=== PATIENT | male | born 1950 | race Caucasian/White ===

== ENCOUNTER 2019-02-20 06:13 | Day surgery (SDC) | payer MEDICARE, MEDICAID ==
[~2019-02-20] VITALS: Ht 160 cm; Wt 73.0 kg
[~2019-02-20 06:13] MED LIST: LACTATED RINGERS 1,000 ML IV SCH
[2019-02-20] MEDS ORDERED: BACITRACIN 15GM TUBE TOP ONE (07:07)
[2019-02-20] MEDS ORDERED: BUPIVACAINE/EPINEPH/PF 0.25%/0.0005 10ML ONE ×2 (07:07→08:51)
[2019-02-20] MEDS ORDERED: HEPARIN SODIUM 1,000 UNIT/1ML VIAL IV ONE (07:07)
[2019-02-20] MEDS ORDERED: BACITRACIN 50,000 UNITS/VIAL ONE (07:08)
[2019-02-20] MEDS ORDERED: MIDAZOLAM HCL 2 MG/2 ML VIAL ONE (07:56)
[2019-02-20] MEDS ORDERED: GLYCOPYRROLATE 0.2 MG/ML 2ML VIAL ONE (07:56)
[2019-02-20] MEDS ORDERED: PROPOFOL 200MG/20ML VIAL IV ONE (07:56)
[2019-02-20] MEDS ORDERED: FENTANYL CITRATE/PF 50MCG/ML 2ML VIAL ONE (07:56)
[2019-02-20] MEDS ORDERED: SUCCINYLCHOLINE CHLORIDE 200MG/10ML IV ONE (07:57)
[2019-02-20] MEDS ORDERED: METOCLOPRAMIDE HCL 10MG/2ML VIAL ONE (07:57)
[2019-02-20] MEDS ORDERED: LIDOCAINE HCL/PF 1% 10 MG/ML 5ML VIAL ONE (07:57)
[2019-02-20] MEDS ORDERED: ONDANSETRON HCL 4MG/2ML INJ ONE (07:57)
[2019-02-20] MEDS ORDERED: DEXAMETHASONE 4MG/ML 1ML VIAL ONE (08:10)
[2019-02-20] MEDS ORDERED: MORPHINE SULFATE/PF 1MG/ML 10ML AMP ONE (08:25)
[2019-02-20] MEDS ORDERED: LOSA50TA41 PO (08:26)
[2019-02-20] MEDS ORDERED: MYCO250C PO (08:26)
[2019-02-20] MEDS ORDERED: MULT-1116 PO (08:26)
[2019-02-20] MEDS ORDERED: TEST200V27 IM (08:26)
[2019-02-20] MEDS ORDERED: MAGN250T29 PO (08:26)
[2019-02-20] MEDS ORDERED: GABA-531 PO (08:26)
[2019-02-20] MEDS ORDERED: RANI150T7 PO (08:26)
[2019-02-20] MEDS ORDERED: BIMA2.5D4 OP (08:26)
[2019-02-20] MEDS ORDERED: CYCL100C PO (08:26)
[2019-02-20] MEDS ORDERED: OMEP20CA5 PO (08:26)
[2019-02-20] MEDS ORDERED: SODIUM CHLORIDE 0.9% 1,000 ML IV ONE (09:47)
[2019-02-20] MEDS ORDERED: MEPERIDINE HCL/PF 25MG/ML CPJ IV PRN (10:00)
[2019-02-20] MEDS ORDERED: ONDANSETRON HCL 4MG/2ML INJ IV PRN (10:00)
[2019-02-20] MEDS ORDERED: MORPHINE SULFATE 2 MG/ML CPJ (NOT FOR IM USE) IV PRN (10:00)
[2019-02-20] MEDS ORDERED: HYDROMORPHONE HCL/PF 2MG/ML CPJ ONE (10:14)
[2019-02-20] MEDS: HYDROMORPHONE HCL/PF 2MG/ML CPJ IV PRN ×4 (10:23→11:13)
[2019-02-20 11:13] VITALS: BP 137/75
[2019-02-20] MEDS ORDERED: HYDROCODONE/ACETAMINOPHEN 5/325MG TABLET PO PRN (11:30)
== END 2019-02-20 12:15 | disposition home or self-care (01) ==
LOC: OR 06:13
PROVIDERS: ATTEND Orthopaedic Surgery
DX: M23.221 Derangement of posterior horn of medial meniscus due to old tear or injury, right knee (principal); I10 Essential (primary) hypertension; F10.10 Alcohol abuse, uncomplicated; K21.9 Gastro-esophageal reflux disease without esophagitis; K74.69 Other cirrhosis of liver; Z98.890 Other specified postprocedural states; Z79.899 Other long term (current) drug therapy
CPT/HCPCS: 29881; 97116; 97161; C2618; J0171; J0330; J1100; J1170; J1644; J2250; J2274; J2405; J2704; J2765; J3010; J3490

== ENCOUNTER 2019-04-14 00:11 | Emergency (ER) | payer MEDICARE, MEDICAID ==
[~2019-04-14] VITALS: Ht 160 cm; Wt 73.0 kg
[~2019-04-14 00:11] MED LIST changes: +BIMA2.5D4 OP; +CYCL100C PO; +GABA-531 PO; -LACTATED RINGERS 1,000 ML IV SCH; +LOSA50TA41 PO; +MAGN250T29 PO; +MULT-1116 PO; +MYCO250C PO; +OMEP20CA5 PO; +RANI150T7 PO; +TEST200V27 IM
[2019-04-14] MEDS ORDERED: HYDROCODONE/ACETAMINOPHEN 5/325MG TABLET PO STA ×2 (01:43→02:33)
[2019-04-14 03:52] VITALS: BP 135/78
== END 2019-04-14 03:53 | disposition home or self-care (01) ==
LOC: ER 00:11
DX: S52.501A Unspecified fracture of the lower end of right radius, initial encounter for closed fracture (principal); S00.83XA Contusion of other part of head, initial encounter; Z98.890 Other specified postprocedural states; W03.XXXA Other fall on same level due to collision with another person, initial encounter; Y93.89 Activity, other specified; Y92.89 Other specified places as the place of occurrence of the external cause; Y99.8 Other external cause status
CPT/HCPCS: 73090; 73110; 99283

== ENCOUNTER 2022-12-26 21:10 | Emergency (ER) | payer MEDICARE, MEDICAID ==
[~2022-12-26] VITALS: Ht 165.1 cm; Wt 68.0 kg
[~2022-12-26 21:10] MED LIST changes: -GABA-531 PO; +GABA-532 PO; +OMEP20CA14 PO; -OMEP20CA5 PO
[2022-12-26 21:17] VITALS: BP 138/70; PULSE 78; RESP 16; TEMP 98.2; O2SAT 100
== END 2022-12-27 00:18 | disposition left against medical advice (07) ==
LOC: ER 21:10
DX: Z53.21 Procedure and treatment not carried out due to patient leaving prior to being seen by health care provider (principal)
CPT/HCPCS: 99281

== ENCOUNTER 2025-03-29 09:04 | Emergency (ER) | payer MEDICARE, MEDICAID ==
[~2025-03-29] VITALS: Ht 160 cm; Wt 73.0 kg
[~2025-03-29 09:04] MED LIST changes: +GABA-1180 PO; -GABA-532 PO
[2025-03-29 09:12] VITALS: O2SAT 97
[2025-03-29] MEDS: INDOMETHACIN 25MG CAPSULE PO ONE (09:56)
[2025-03-29] MEDS ORDERED: INDO50CA98 MT (10:24)
[2025-03-29 10:36] VITALS: BP 122/75; PULSE 68; RESP 18; TEMP 36.6; O2SAT 97
== END 2025-03-29 10:37 | disposition home or self-care (01) ==
LOC: ER 09:04
DX: M10.9 Gout, unspecified (principal); I10 Essential (primary) hypertension; Z79.899 Other long term (current) drug therapy; Z98.890 Other specified postprocedural states
CPT/HCPCS: 99283